=== PATIENT | female | born 1980 | race Caucasian/White ===

== ENCOUNTER 2023-09-16 09:23 | Emergency (ER) | payer OTHER, SELFPAY ==
--- NOTE | ~2023-09-16 | XR_ITS ---
EXAMINATION: XR CHEST 2 VIEW CLINICAL INFORMATION: Chest pain COMPARISON: None TECHNIQUE: PA and lateral views of the chest obtained. FINDINGS: The lungs are clear. There are no pleural effusions. The cardiomediastinal silhouette is normal. XR/XR chest 2V IMPRESSION: No acute cardiopulmonary disease.
--- NOTE | 2023-09-16 09:37 | ECG_ITS ---
Test Reason : cp Blood Pressure : / mmHG Vent. Rate : 107 BPM Atrial Rate : 107 BPM P-R Int : 118 ms QRS Dur : 078 ms QT Int : 308 ms P-R-T Axes : 046 032 017 degrees QTc Int : 411 ms Sinus tachycardia Otherwise normal ECG No previous ECGs available Referred By: Generic ED Physician Electronically Signed By:Sravan Nguyen
[2023-09-16 10:32] VITALS: BP 174/108; PULSE 109; RESP 20; TEMP 36.4; O2SAT 98; BMI 36.4
[2023-09-16 10:46] LABS: MANUAL DIFF FLAG NO
[2023-09-16 10:48] LABS: Basophils Percent Auto 0.4 % (0-2); Eosinophils Absolute Auto 0.2 X10*3/uL (0.0-0.4); Eosinophils Percent Auto 2.3 % (0-4); Hematocrit 41.5 % (37.0-47.0); Hemoglobin 14.3 g/dl (12.0-16.0); Imm Gran Abs Auto 0.01 X10*3/uL (0.00-0.03); Imm Gran Pct Auto 0.1 % (0.0-0.4); Lymphocytes Absolute Auto 2.1 X10*3/uL (1.2-4.9); Lymphocytes Percent Auto 30.4 % (20-40); Mean Corpuscular HGB Conc 34.5 g/dl (31.0-35.0); Mean Corpuscular Hemoglobin 32.5 pg (27.0-33.0); Mean Corpuscular Volume 94.3 fL (80.0-98.0); Mean Platelet Volume 9.9 fL (9.4-12.3); Monocytes Absolute Auto 0.6 X10*3/uL (0.1-1.2); Monocytes Percent Auto 8.6 % (2-11); Neutrophils Absolute Auto 4.1 x10*3/uL (2.0-8.3); Neutrophils Percent Auto 58.2 % (45-73); Platelet Count 201 X10*3/uL (160-400)
[2023-09-16 11:02] LABS: Anion Gap 15 (12-20); Blood Urea Nitrogen 13 mg/dL (9-16); Carbon Dioxide 24 mmol/L (22-29); Chloride 104 mmol/L (96-108); Creatinine Clr Calc Pharmacy 94.9; Estimated Glomerular Filt Rate > 60; Glucose Random 102 mg/dL (60-115); Potassium 4.1 mmol/L (3.3-5.1); Sodium 139 mmol/L (135-145)
[2023-09-16 11:26] LABS: Troponin-I High Sensitivity < 2.7 ng/L (<3.5-17.0)
[2023-09-16 12:45] VITALS: BP 149/101; PULSE 91; PULSE 92; RESP 16; O2SAT 100
--- NOTE | 2023-09-16 14:16 | ED_ITS ---
HPI - Chest Pain General Chief Complaint: Chest Pain Stated Complaint: Chest pain 3 days Time Seen by Provider: 09/16/23 13:59 Source: patient and RN notes reviewed Mode of arrival: ambulatory Limitations: no limitations History of Present Illness HPI narrative: This is a 43-year-old female, with no known past medical history, presenting to the emergency department with complaints of ongoing intermittent chest pain since Friday night. Patient reports that the chest pain is intermittent, lasts for several seconds and resolved on its own. She states that she has a heaviness in her chest constantly. She reports that the pain improves with deep inspiration. She also reports some mild left shoulder pain however states that she recently went up her [place] tree and is unsure if this is what is causing her to have some soreness there. She denies any fevers, chills, recent illness, palpitations, shortness of breath, abdominal pain, nausea, vomiting or diarrhea. She is on a progesterone only control, no recent travel or surgeries, no recent lower extremity pain or swelling. No history of blood clots or cancer history per No other complaints or concerns at this time MD complaint: chest pain and chest heaviness Related Data Allergies Allergy/AdvReac Type Severity Reaction Status Date / Time No Known Allergies Allergy Verified 09/16/23 14:11 Review of Systems 2 Review of Systems: Yes all other systems are reviewed and are negative Constitutional: Constitutional: Reports as per [facility] Social History Social History Smoked in Last 30 Days: No Use of substances other than those prescribed or required for medical reasons: No Advance Directives: No Physical Exam 2 Vital Signs: Vital Signs: Last Vital Signs Temp 98.6 F 09/16/23 16:20 Pulse 104 H 09/16/23 16:20 Resp 16 09/16/23 16:20 BP 155/102 H 09/16/23 16:20 Pulse Ox 100 09/16/23 16:20 O2 Del Method Room Air 09/16/23 16:20 BMI result Body Mass Index 36.4 Const: General: cooperative, comfortable and no acute distress O rientation/consciousness: patient oriented x3 Limitations: no limitations HEENT: Head: Yes normal to inspection, Yes normocephalic and Yes atraumatic Ears: hearing grossly normal bilaterally General nose exam: Normal external nose present Face and sinus: Yes normal facial exam Mouth: Normal oral and palatal mucosa present, oropharynx normal and moist mucous membranes Throat: Yes posterior oropharynx normal Eyes: General: appearance normal, both eyes and all related structures E yelids: Yes eyelids normal Conjunctivae: conjunctivae normal Sclerae: s clerae normal Pupils: Equal, round and reactive pupils present EOM: EOMs intact bilaterally Neck: Neck: Yes normal visual inspection, Yes full ROM and Yes no lymphadenopathy Lymphatic: no lymphadenopathy noted Chest: Chest palpation & inspection: normal inspection of the chest Resp: Effort & Inspection: normal respiratory effort and able to speak in complete sentences Auscultation: clear to auscultation bilaterally, no crackles, no rales, no rhonchi and no wheezes Cardio: Rate: regular rate Rhythm: regular rhythm Heart sounds: S1 normal heart sound present and S2 normal heart sound present GI: Inspection: Yes normal to inspection Skin: General skin exam: no rashes or lesions noted Trauma: no lacerations or abrasions Wounds: no wounds Neuro: General: patient oriented x3 and moves all extremities Cranial nerves: Yes Equal, round and reactive pupils present Extrem: Other: No calf tenderness or swelling pitting edema General: Yes normal to inspection Right upper extremity: normal to inspection Left upper extremity: normal to inspection Right lower extremity: normal to inspection Left lower extremity: normal to inspection Course Reevaluation(s) Reevaluation #1: Troponin x2 negative. Patient has a heart score of 0. Perc negative. Patient's chest pain unlikely cardiac in nature. Lab work reassuring. Discussed these findings with patient. Time: 15:43 Reevaluation #2: Patient tested negative for COVID, RSV, flu. Cardiac workup with negative today. Discussed all findings with patient understands and agrees with plan. Patient stable for discharge. Time: 16:43 Medical Decision Making Medical Decision Making MDM Narrative: This is a 43-year-old female presenting to the emergency department with complaints of intermittent left-sided chest pain since Friday. On arrival, vital signs mildly elevated with blood pressure 174/108, pulse 109. Patient is anxious appearing, EKG was performed, no ST elevation or depression seen. Differential diagnoses include ACS, PE-unlikely, costochondritis, atypical chest pain, pneumonia, pneumothorax. Plan to obtain labs, troponin x2, chest x-ray, EKG. Differential Diagnosis Differential Diagnoses: The differential diagnosis associated with the presentation includes See above Admission/Observation Consideration of admission/observation: Escalation of care including admission/observation considered Patient would have been admitted to the hospital had her work up had any findings where hospital admission was appropriate and her clinical presentation warranted hospital admission. Lab Data MDM Lab Attestation statement: I reviewed the patient's lab results. No leukocytosis, stable H&H, troponin x2 is negative 09/16/23 10:42 09/16/23 10:42 Labs: Lab Results 09/16/23 09/16/23 09/16/23 Range/Units 10:42 15:11 15:52 WBC 7.0 (4.8-10.8) X10*3/uL RBC 4.40 (4.20-5.50) X10*6/uL Hgb 14.3 (12.0-16.0) g/dl Hct 41.5 (37.0-47.0) % MCV 94.3 (80.0-98.0) fL MCH 32.5 (27.0-33.0) pg MCHC 34.5 (31.0-35.0) g/dl RDW 12.0 (11.0-16.0) % Plt Count 201 (160-400) X10*3/uL MPV 9.9 (9.4-12.3) fL Immature Gran % (Auto) 0.1 (0.0-0.4) % Neut % (Auto) 58.2 (45-73) % Lymph % (Auto) 30.4 (20-40) % [place] % (Auto) 8.6 (2-11) % Eos % (Auto) 2.3 (0-4) % Baso % (Auto) 0.4 (0-2) % Lymph # (Auto) 2.1 (1.2-4.9) X10*3/uL [place] # (Auto) 0.6 (0.1-1.2) X10*3/uL Eos # (Auto) 0.2 (0.0-0.4) X10*3/uL Baso # (Auto) 0.0 (0.0-0.2) X10*3/uL Abs Immat Gran (auto) 0.01 (0.00-0.03) X10*3/uL Absolute Neuts (auto) 4.1 (2.0-8.3) x10*3/uL Absolute Nucleated RBC 0.000 (0.0-0.012) X10*3/uL Nucleated RBC % (auto) 0.0 (0.0-0.2) /100WBC Sodium 139 (135-145) mmol/L Potassium 4.1 (3.3-5.1) mmol/L Chloride 104 (96-108) mmol/L Carbon Dioxide 24 (22-29) mmol/L Anion Gap 15 (12-20) BUN 13 (9-16) mg/dL Creatinine 0.83 (0.5-1.4) mg/dL Estim Creat Clear Calc 94.9 Estimated GFR > 60 Random Glucose 102 (60-115) mg/dL Calcium 10.0 (8.4-10.2) mg/dL Troponin I High Sens < 2.7 < 2.7 (<3.5-17.0) ng/L Influenza Type A (PCR) NEGATIVE (Negative) Influenza Type B (PCR) NEGATIVE (Negative) RSV RNA Qual (PCR) NEGATIVE (Negative) SARS-CoV-2 RNA (RT-PCR) NEGATIVE (Negative) Independent Interpretation I performed an independent interpretation of an: EKG Interpretation: EKG sinus tachycardia at a ventricular rate of 107bpm, no ST elevation or depression. Flipped T-wave in lead 3 and V1. No previous EKG for comparison. Radiology Impression Discussion of test interpretation with radiology: I have reviewed the radiologist's reading. Radiologist Impression: EXAMINATION: XR CHEST 2 VIEW CLINICAL INFORMATION: Chest pain COMPARISON: None TECHNIQUE: PA and lateral views of the chest obtained. FINDINGS: The lungs are clear. There are no pleural effusions. The cardiomediastinal silhouette is normal. XR/XR chest 2V IMPRESSION: No acute cardiopulmonary disease. Dictated By: Jone Back MD Scores Heart Score History: -0- slightly suspicious ECG: -0- normal Age: -0- < or = 45 Risk factory: -0- no risk factors known Troponin: -0- < or = normal limit Score: 0 Risk: 1.7% Discharge Plan Discharge Clinical Impression: Atypical chest pain Patient Disposition: Home, Self-Care Instructions: Chest Pain (ED) Additional Instructions: Your seen in the emergency department due to chest pain. Your EKG, chest x-ray, and lab work was reassuring today. You tested negative for COVID, RSV, and flu Please rest, drink plenty fluids. You may take ibuprofen as needed for pain. Follow-up with your primary care physician. If any new or worsening symptoms occur including but not limited to worsening chest pain, shortness breath, palpitations, please return for re-evaluation. Interventions: ED Discharge Assessment Last Done: 09/16/23 17:02 Discharge Date/Time: 09/16/23 17:02
[2023-09-16 15:41] LABS: Troponin-I High Sensitivity < 2.7 ng/L (<3.5-17.0)
[2023-09-16 16:20] VITALS: BP 155/102; PULSE 104; RESP 16; TEMP 37; O2SAT 100
[2023-09-16 16:36] LABS: Influenza A PCR NEGATIVE (Negative); Influenza B PCR NEGATIVE (Negative); Resp Syncy Virus RNA Qual PCR NEGATIVE (Negative); SARS COV2 PCR INHOUSE NEGATIVE (Negative)
--- NOTE | 2023-09-16 17:03 | PC.NURSE ---
denies cp on d/c. no distress or sob. walks well
== END 2023-09-16 17:02 | disposition home or self-care (01) ==
PROVIDERS: Physician Assistant Medical; Emergency Provider Emergency Medicine Emergency Medical Services; PCP Nurse Practitioner Family
DX: R07.89 Other chest pain (principal); Z20.822 Contact with and (suspected) exposure to COVID-19; Z20.828 Contact with and (suspected) exposure to other viral communicable diseases; Z79.899 Other long term (current) drug therapy
CPT/HCPCS: 0241U; 36415; 71046; 80048; 84484; 85025; 93005; 99283; 99285

== ENCOUNTER → 2023-09-16 09:37 | Outpatient (BNV) | payer OTHER, SELFPAY | PROVIDERS: PCP Nurse Practitioner Family; Visit Provider Internal Medicine Cardiovascular Disease | DX: R00.0 Tachycardia, unspecified (principal); R07.9 Chest pain, unspecified | CPT/HCPCS: 93010 ==